=== PATIENT | male | born 1955 | race African-American/Black ===

== ENCOUNTER 2016-06-18 14:12 | Outpatient (CLI) | payer OTHER ==
--- NOTE | 2016-06-18 18:04 | RAD ---
PA AND LATERAL CHEST X-RAY 06/18/16 HISTORY: Disability evaluation. FINDINGS: Compared to study on 05/15/03. A dual lead left subclavian cardiac pacemaking device is now noted in place. The cardiac silhouette is enlarged. The pulmonary vasculature is within normal limits. Lungs are clear. There is evidence o f prior granulomatous disease. There has been no interval change from the prior exam. IMPRESSION: 1. No acute cardiopulmonary process. 2. Mild cardiomegaly without overt CHF. POS: [facility]
== END 2016-06-18 14:13 | disposition home or self-care (01) ==
LOC: NAV RAD 14:12
PROVIDERS: ATTEND Family Medicine
DX: Z02.71 Encounter for disability determination (principal); I51.7 Cardiomegaly
CPT/HCPCS: 71020

== ENCOUNTER 2016-10-21 19:10 | Emergency (ER) | payer OTHER, SELFPAY ==
[2016-10-21] MEDS ORDERED: Sodium Chloride 0.9% 1,000 ML ONE (19:22)
[2016-10-21 19:34] LABS: #Basophils 0.1 thou/uL (0.0-0.2); #Eosinphils 0.1 thou/uL (0.0-0.7); #Lymphocytes 2.6 thou/uL (1.20-3.40); #Monocytes 0.9 thou/uL (0.11-0.59); #Neutrophils 4.9 thou/uL (1.40-6.50); %Basophils 1.4 % (0.0-1.0); %Eosinophils 0.8 % (0.0-10.0); %Lymphocytes 30.2 % (21.0-51.0); %Monocytes 10.6 % (0.0-10.0); Hemoglobin 17.7 g/dL (14.0-18.0); Mean Corpuscular HGB CONC 33.8 g/dL (32.0-36.0); Mean Corpuscular Hemoglobin 28.3 pg (27.0-31.0); Mean Corpuscular Volume 83.9 fl (80.0-94.0); Mean Platelet Volume 8.9 fL (7.4-10.4); Platelet Count 212 thou/uL (130-400); Red Blood Cell (RBC) Count 6.23 mill/uL (4.70-6.10); White Blood Cell (WBC) Count 8.5 thou/uL (4.8-10.8)
[2016-10-21 19:56] LABS: ALT (SGPT) 65 U/L (8-55); AST (SGOT) 58 U/L (5-34); Albumin 4.6 g/dL (3.5-5.0); Alkaline Phosphatase 80 U/L (40-150); Anion Gap 24 mmol/L (10-20); BUN (Urea Nitrogen) 20 mg/dL (8.4-25.7); Bilirubin, Total 1.6 mg/dL (0.2-1.2); CK (CPK) 148 U/L (30-200); Calc. Creatinine Clearance 0 mL/min (70-130); Calcium 10.9 mg/dL (7.8-10.44); Carbon Dioxide 21 mmol/L (22-29); Chloride 96 mmol/L (98-107); Estimated GFR-MDRD 76; Glucose 106 mg/dL (70-105); Potassium 4.2 mmol/L (3.5-5.1); Protein, Total 8.6 g/dL (6.0-8.3); Sodium 137 mmol/L (136-145)
[2016-10-21 19:57] LABS: CKMB 5.8 ng/mL (0-6.6); Troponin I 0.173 ng/mL (< 0.028)
--- NOTE | 2016-10-21 20:14 | RAD ---
AP CHEST: Indication: Chest pain. Comparison: 06-18-10 FINDINGS: There is a dual-lead pacemaker overlying the left chest wall. Heart size is within normal limits. Th ere are calcified lymph nodes within the left hilar region. Lungs are clear. No pleural effusion or pneumothorax is evident. No acute osseous abnormality is evident. IMPRESSION: No acute cardiopulmonary abnormality. POS: [facility]
== END 2016-10-21 20:55 | disposition short-term general hospital (02) ==
LOC: NAV ERS 19:10
DX: I48.91 Unspecified atrial fibrillation (principal); I10 Essential (primary) hypertension; E05.90 Thyrotoxicosis, unspecified without thyrotoxic crisis or storm; F17.210 Nicotine dependence, cigarettes, uncomplicated; Z79.899 Other long term (current) drug therapy
CPT/HCPCS: 36415; 71010; 80053; 82553; 83880; 84484; 85025; 93005; 96361; 96374; J7050

== ENCOUNTER 2016-12-30 15:20 | Emergency (ER) | payer SELFPAY ==
[2016-12-30 16:40] LABS: Anion Gap 15 mmol/L (10-20); BUN (Urea Nitrogen) 11 mg/dL (8.4-25.7); Calc. Creatinine Clearance 0 mL/min (70-130); Calcium 9.4 mg/dL (7.8-10.44); Carbon Dioxide 22 mmol/L (22-29); Chloride 107 mmol/L (98-107); Estimated GFR-MDRD Greater than 90; Glucose 76 mg/dL (70-105); Sodium 140 mmol/L (136-145)
== END 2016-12-30 17:10 | disposition home or self-care (01) ==
LOC: NAV ERS 15:20
DX: D75.89 Other specified diseases of blood and blood-forming organs (principal); I10 Essential (primary) hypertension; E05.90 Thyrotoxicosis, unspecified without thyrotoxic crisis or storm; F17.210 Nicotine dependence, cigarettes, uncomplicated; Z79.82 Long term (current) use of aspirin; Z79.899 Other long term (current) drug therapy
CPT/HCPCS: 80048; 93005

== ENCOUNTER 2024-05-07 09:51 | Outpatient (CLI) | payer MEDICARE | END 2024-05-07 09:52 | disposition home or self-care (01) | LOC: NAV RAD 09:51 | PROVIDERS: ATTEND Nurse Practitioner Family | DX: M54.50 Low back pain, unspecified (principal); M47.816 Spondylosis without myelopathy or radiculopathy, lumbar region; M47.814 Spondylosis without myelopathy or radiculopathy, thoracic region | CPT/HCPCS: 72072; 72100 ==